=== PATIENT | female | born 1950 | race Caucasian/White ===

== ENCOUNTER 2021-11-23 06:44 | Day surgery (SDC) | payer MEDICARE, BC ==
[2021-11-16 16:11] LABS: BASOPHILS # (AUTO) 0.1 X10'3 (0-0.2); EOSINOPHILS # (AUTO) 0.5 X10'3 (0-0.9); EOSINOPHILS % (AUTO) 5.5 % (0-6); LYMPHOCYTES # (AUTO) 3.8 X10'3 (1.1-4.8); LYMPHOCYTES % (AUTO) 38.8 % (21-51); MEAN CORPUSCULAR HEMOGLOBIN 28.8 PG (27.0-31.0); MEAN CORPUSCULAR HGB CONC 32.6 g/dL (33.0-36.5); MEAN CORPUSCULAR VOLUME 88.4 FL (78-98); MEAN PLATELET VOLUME 9.4 FL (7.4-10.4); MONOCYTES # (AUTO) 0.8 X10'3 (0-0.9); MONOCYTES % (AUTO) 8.6 % (2-12); NEUTROPHILS # (AUTO) 4.5 X10'3 (1.8-7.7); NEUTROPHILS % (AUTO) 46.1 % (42-75); PRE OP HEMOGLOBIN 13.4 g/dL (12.0-16.0); PRE OP PLATELET COUNT 305 X10'3 (140-440); RED BLOOD COUNT 4.64 X10'6 (4.20-5.60); RED CELL DISTRIBUTION WIDTH 14.3 % (11.5-14.5)
[2021-11-16 16:19] LABS: ALBUMIN 3.3 G/DL (3.4-5.0); ALBUMIN/GLOBULIN RATIO 0.9 (1.1-1.5); ALKALINE PHOSPHATASE 135 IU/L (46-116); BLOOD UREA NITROGEN 16 MG/DL (7-18); BUN/CREATININE RATIO 16.2 (6.6-38.0); CHLORIDE 105 MMOL/L (99-107); CREATININE 0.99 MG/DL (0.40-0.90); PRE OP ALT 17 U/L (30-65); PRE OP ANION GAP 11 (8-16); PRE OP AST 14 U/L (10-37); PRE OP BILIRUB, TOTAL 0.2 MG/DL (0.0-1.0); PRE OP GLUCOSE 98 MG/DL (70-104); PRE OP POTASSIUM 4.3 MMOL/L (3.4-5.1); PRE OP SODIUM 147 MMOL/L (135-145); TOTAL CARBON DIOXIDE 30.9 MMOL/L (24-32); TOTAL PROTEIN 6.8 G/DL (6.4-8.2); eGFR 56 ML/MIN
[~2021-11-23] VITALS: Ht 157.5 cm; Wt 82.9 kg
[2021-11-23] VITALS (13 sets, daily range): BP systolic 88–143; BP diastolic 57–75
[~2021-11-23 06:44] MED LIST: ASPI-611 PO; ATOR20TA66 PO; DOCUMENT DATE & TIME OF BETA-BLOCKER PO ONE; ESCI20TA39 PO; LOSA25TA41 PO; OMEP20CA16 PO; PROP20TA6 PO; cefazolin/dext.iso 2gm/50ml IV ONE; famotidine 20mg tablet PO ONE; ringers solution, lacted 1,000 ML IV SCH
[2021-11-23] MEDS ORDERED: BUPIVAcaine 0.5% inj/PF 30 ML ONE (06:50)
[2021-11-23] MEDS ORDERED: LIDOcaine 1% 30ml preserv. free vial ONE (08:08)
[2021-11-23] MEDS ORDERED: FENTANYL CITRATE/PF 50 MCG/1 ML VIAL ONE ×2 (09:39→10:47)
[2021-11-23] MEDS ORDERED: MIDAZolam 1 MG/ML 5ML VIAL ONE (09:40)
[2021-11-23] MEDS ORDERED: ketorolac trometh. 30mg/ml inj. ONE (10:19)
[2021-11-23] MEDS ORDERED: BUPIVAcaine 0.5% inj/PF 30 ml vial IJ ONE (10:27)
--- NOTE | 2021-11-23 11:06 | NUR ---
Received from OR via [facility], accompanied by Anesthesiologist DR BERUMEN and report given by Anesthesiologist AND TALENT MANAGER. PT VERY DROWSY, NO S/S OF DISTRESS/DISCOMFORT. LEFT HAND/WRIST W/BIAS WRAP COVERING INCISION/DRSG CDI. 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 Addendum: 11/23/21 at 1128 by Danii Arriola RN Amended: Links added.
--- NOTE | 2021-11-23 13:16 | NUR ---
PT ABLE TO AMBULATE SAFELY, NO COMPLAINTS OF PAIN. D/C INSTRUCTIONS GIVEN AND GONE OVER W/PT WHO VERBALIZED UNDERSTANDING. PT D/CD TO HOME VIA W/C TO PRIVATE VEHICLE W/O INCIDENT. Addendum: 11/23/21 at 1341 by Danii Arriola RN Amended: Links added.
== END 2021-11-23 13:16 | disposition home or self-care (01) ==
LOC: PAS 06:44
PROVIDERS: ATTEND Orthopaedic Surgery Hand Surgery
DX: G56.02 Carpal tunnel syndrome, left upper limb (principal); M18.12 Unilateral primary osteoarthritis of first carpometacarpal joint, left hand; J44.9 Chronic obstructive pulmonary disease, unspecified; I10 Essential (primary) hypertension; I25.10 Atherosclerotic heart disease of native coronary artery without angina pectoris; M19.032 Primary osteoarthritis, left wrist; F41.9 Anxiety disorder, unspecified; E66.9 Obesity, unspecified; Z68.32 Body mass index [BMI] 32.0-32.9, adult; Z95.1 Presence of aortocoronary bypass graft; Z86.718 Personal history of other venous thrombosis and embolism; Z20.822 Contact with and (suspected) exposure to COVID-19; Z79.899 Other long term (current) drug therapy; Z79.82 Long term (current) use of aspirin; Z98.890 Other specified postprocedural states; Z87.891 Personal history of nicotine dependence
CPT/HCPCS: 25310; 25447; 36415; 64721; 80053; 82948; 85025; 93005; J1885; J2250; J3010; J3490; J7030; J7120; S0020; U0003; U0005; Z7506; Z7508; Z7512; A4215; A4618; A7000